=== PATIENT | female | born 1985 | race Two or more races ===

== ENCOUNTER → 2017-05-05 | Outpatient (CLI) | payer MEDICAID | LOC: FIMAGING 13:24 | PROVIDERS: ATTEND Obstetrics & Gynecology | DX: O09.891 Supervision of other high risk pregnancies, first trimester (principal); F31.9 Bipolar disorder, unspecified; Z3A.13 13 weeks gestation of pregnancy ==

== ENCOUNTER → 2017-06-27 | Outpatient (CLI) | payer MEDICAID | LOC: FIMAGING 11:16 | PROVIDERS: ATTEND Obstetrics & Gynecology | DX: Z34.82 Encounter for supervision of other normal pregnancy, second trimester (principal); F31.9 Bipolar disorder, unspecified; R51 Headache; M54.9 Dorsalgia, unspecified; Z3A.20 20 weeks gestation of pregnancy ==

== ENCOUNTER → 2017-08-02 | Outpatient (CLI) | payer MEDICAID | LOC: FIMAGING 14:37 | PROVIDERS: ATTEND Obstetrics & Gynecology | DX: O99.212 Obesity complicating pregnancy, second trimester (principal); O36.62X0 Maternal care for excessive fetal growth, second trimester, not applicable or unspecified; O99.342 Other mental disorders complicating pregnancy, second trimester; F31.9 Bipolar disorder, unspecified; Z3A.28 28 weeks gestation of pregnancy ==

== ENCOUNTER → 2017-09-06 | Outpatient (CLI) | payer MEDICAID | LOC: FIMAGING 15:02 | PROVIDERS: ATTEND Obstetrics & Gynecology | DX: O99.213 Obesity complicating pregnancy, third trimester (principal); O36.63X0 Maternal care for excessive fetal growth, third trimester, not applicable or unspecified; Z3A.30 30 weeks gestation of pregnancy ==

== ENCOUNTER → 2017-10-17 | Outpatient (CLI) | payer MEDICAID | LOC: FIMAGING 15:03 | PROVIDERS: ATTEND Obstetrics & Gynecology | DX: O36.63X0 Maternal care for excessive fetal growth, third trimester, not applicable or unspecified (principal); O99.213 Obesity complicating pregnancy, third trimester; O99.343 Other mental disorders complicating pregnancy, third trimester; F31.9 Bipolar disorder, unspecified; L29.9 Pruritus, unspecified; Z3A.36 36 weeks gestation of pregnancy ==